=== PATIENT | female | born 1980 | race Caucasian/White ===

== ENCOUNTER 2017-11-30 17:44 | Emergency (ER) | payer OTHER ==
--- NOTE | 2017-11-30 18:11 | EDPHY ---
H & P Stated Complaint: Depression, anxiety, SI (no plans) for ~2wks - Personal History LMP (Females 10-55): Over 28 Days Ago Current Tetanus Diphtheria and Acellular Pertussis (TDAP): Yes - Medical/Surgical History Other PMH: Psych. PCOS - Social History Smoking Status: Never smoked Time Seen by Provider: 11/30/17 18:02 Constitutional: Initial Vital Signs Temperature (C) 36.8 C 11/30/17 17:47 Heart Rate 94 11/30/17 17:47 Respiratory Rate 18 11/30/17 17:47 Blood Pressure 106/78 11/30/17 17:47 O2 Sat (%) 96 11/30/17 17:47 O2 Delivery Mode Room Air Allergies/Adverse Reactions: No Known Allergies Allergy (Unverified 11/30/17 17:51) Home Medications: Medication Instructions Recorded ALPRAZolam [Xanax 1 MG (*)] 1 mg PO 11/30/17 Lurasidone HCl [Latuda] 80 mg PO BID 11/30/17 buPROPion SR [Wellbutrin 150mg SR 300 mg PO 11/30/17 (*)] traZODone [traZODONE 100MG (*)] 300 mg PO 11/30/17 Medical Decision Making ED Course/Re-evaluation: CHIEF COMPLAINT: Depressed and suicidal HISTORY OF PRESENT ILLNESS: 37-year-old female with a long history of bipolar disorder. She takes numerous meds which she claims and her brother who is at bedside claims she has been taking appropriately. She does admit to using slightly more Xanax and trazodone then need is prescribed because she has severe depression at this time and she just wants to sleep all the time. She states her thoughts are clear. She has suicidal. She denies any specific plan. She is having difficulty thinking and making decisions and sleeping most of the day. She has been hospitalized several times for the same thing. REVIEW OF SYSTEMS: A 10 point review of systems was performed and is negative with the exception of the elements mentioned in the history of present illness. PHYSICAL EXAM: General Appearance: Alert, well hydrated, appropriate, and non-toxic appearing. Head: Atraumatic without scalp tenderness or obvious injury Eyes: Pupils equal, round, reactive to light and accommodation, EOMI, no trauma , no injection. Ears: Clear bilaterally, no perforation, normal landmarks Nose: Atraumatic, no rhinorrhea, clear. Throat: There is no erythema or exudates, no lesions, normal tonsils, mucus membranes moist. Neck: Supple, 2+ carotid upstroke, nontender, no lymphadenopathy. Respiratory: No retractions, no distress, no wheezes, and no accessory muscle use. Lungs are clear to auscultation bilaterally. Cardiovascular: Regular rate and rhythm, no murmurs, rubs, or gallops. Bilateral carotid, radial, dorsalis pedis, and posterior tibial pulses intact. Good capillary refill all extremities. Gastrointestinal: Abdomen is soft, nontender, non-distended, no masses, no rebound, no guarding, no peritoneal signs. Musculoskeletal: Normal active ROM of all extremities, atraumatic. Neurological: Alert, appropriate, and interactive. The patient has normal DTRs and non-focal cranial nerves, motor, sensory, and cerebellar exam. Skin: No rashes, good turgor, no nodules on palpation. Past medical history: Bipolar disorder Past surgical history: Noncontributory Family history: Noncontributory Social history: Single, employed, does not abuse tobacco drugs or alcohol DIFFERENTIAL DIAGNOSIS: The differential diagnosis for the patient's depression included but was not limited to functional and major depression, situational depression, medication side effect, drugs, and alcohol abuse. MEDICAL DECISION MAKING: Patient is in no acute distress and is hemodynamically stable. We are awaiting psychiatric team's evaluation. Patient has known history of psychiatric disorders and is here for evaluation. I believe she should be admitted based on her severe vegetative symptoms of depression and suicidality. Additionally, she is on all her prescribed medicines so I believe a changes in order. (Gaurav Melgar) 0335: Patient is sleeping. Patient on M1 hold. She has been evaluated and there seek inpatient psychiatric hospitalization placement. Here with bipolar disorder, depression, worsening suicidal ideation. [id number]: Signed over to Dr. Melgar. (Conrado Castro) Other Provider: I assumed care of the patient at 7 o'clock in the morning Update at 8:45 a.m.: The patient has been accepted for inpatient psychiatric hospitalization at [facility] by Dr. Camarillo. I have filled out the EMTALA transfer form. (Juve Melgar) - Data Points Laboratory Results: Laboratory Results 11/30/17 18:15 11/30/17 18:15 Departure - Departure Disposition: Other Psych, Not [place] Clinical Impression: Bipolar 1 disorder, Suicidal ideation Condition: Good Referrals: NONE *PRIMARY CARE P,. [Primary Care Provider] - As per Instructions
[2017-11-30 18:29] LABS: PLATELET COUNT 225 10^3/uL (150-400)
[2017-12-01 11:03] VITALS: PULSE 74; TEMP 97.2
[2017-12-01 11:08] VITALS: BP 105/75; RESP 18; O2SAT 96
== END 2017-12-01 11:08 ==
PROC: GZ11ZZZ Psychological Tests, Personality and Behavioral (ICD-10-PCS; principal; 2017-11-30)
DX: R45.851 Suicidal ideations (principal); F31.9 Bipolar disorder, unspecified
CPT/HCPCS: 80305; G0480